=== PATIENT | female | born 1970 | race African-American/Black ===

== ENCOUNTER 2016-04-30 17:05 | Inpatient (IN) | payer MEDICAID ==
[~2016-04-30] VITALS: Ht 168.9 cm; Wt 99.3 kg
[2016-04-30] MEDS ORDERED: INSULIN DRIP 1 UNIT/ML 100 ML IV SCH (23:40)
[2016-04-30] MEDS ORDERED: DEXTROSE 50% SYRINGE 50 ML IV PRN (23:40)
[2016-04-30] MEDS ORDERED: DEXTROSE 5% SALINE 0.9% 1,000 ML IV SCH (23:40)
[2016-04-30 23:48] VITALS: BP_SYST 131; RESP 19
[2016-04-30 23:56] VITALS: BMI 34.9
[2016-05-01] VITALS (31 sets, daily range): BP systolic 105–148; RESP 12–26; TEMP 97.6–98.6; BMI 34.8
[2016-05-01] MEDS ORDERED: SODIUM CHLORIDE 0.9% 1,000 ML IV SCH (03:00)
[2016-05-01] MEDS ORDERED: LEVEMIR INSULIN SUBQ ONE (11:35)
[2016-05-01] MEDS ORDERED: GLUCAGON 1 MG VIAL IM PRN (11:35)
[2016-05-01] MEDS ORDERED: DEXTROSE 50% SYRINGE 50 ML IV PRN (11:35)
[2016-05-01] MEDS: CEFTRIAXONE 1 GM in SODIUM CHLORIDE 0.9% 50 ML IV SCH (20:15)
[2016-05-02] VITALS (7 sets, daily range): BP systolic 114–132; RESP 16–20; TEMP 97.3–98.4
[2016-05-02] MEDS: CEFTRIAXONE 1 GM in SODIUM CHLORIDE 0.9% 50 ML IV SCH (08:27)
[2016-05-02] MEDS ORDERED: LEVEMIR INSULIN SUBQ SCH (09:00)
[2016-05-02] MEDS ORDERED: LEVEMIR INSULIN SUBQ ONE (14:15)
[2016-05-02] MEDS ORDERED: ENOXAPARIN 40 MG/0.4 ML SYR SUBQ SCH (14:15)
[2016-05-03] MEDS ORDERED: SODIUM CHLORIDE 0.9% 1,000 ML IV SCH
[2016-05-03 03:53] VITALS: BP_SYST 124; RESP 18; TEMP 97.5
[2016-05-03 07:48] VITALS: BP_SYST 119; RESP 18; TEMP 97.5
[2016-05-03] MEDS ORDERED: ACETAMIN/BUTALB/CAFF PO PRN (08:35)
[2016-05-03] MEDS: CEFTRIAXONE 1 GM in SODIUM CHLORIDE 0.9% 50 ML IV SCH (08:40)
[2016-05-03] MEDS ORDERED: LEVEMIR INSULIN SUBQ SCH ×3 (09:00)
[2016-05-03 10:18] VITALS: BP_SYST 133; RESP 18; TEMP 98
[2016-05-03 10:47] VITALS: BP_SYST 133; RESP 18; TEMP 98
== END 2016-05-03 11:46 | disposition home or self-care (01) | DRG 639 ==
LOC: ENRESERVDT → ENRESERVTM → CANRESERV → ENPENDDIS 23:17 → ICU 23:17 → 3NT 05-01 18:34
PROVIDERS: ADMIT Internal Medicine; ATTEND Internal Medicine
CPT/HCPCS: 80048; 80053; 80061; 81001; 82009; 82947; 83036; 84703; 85025; 87088; 99222; 99233; 99239